=== PATIENT | male | born 1990 | race Caucasian/White ===

== ENCOUNTER 2018-09-09 20:14 | Inpatient (IN) | payer OTHER ==
--- NOTE | 2018-09-09 20:16 | EDPHY ---
HPI/HX/ROS/PE/MDM Narrative: CHIEF COMPLAINT: Abdominal pain HPI: This patient is a 28 year old male with history of ulcerative colitis s/p colostomy placement in April. He arrives today via EMS with concern for a possible clogged ostomy site. He has not noted any output in his colostomy bag for the past 8 hours. He endorses nausea ongoing for several hours with several episodes of vomiting beginning around 18:00 today. He endorses pain at 8/10 severity in his lower abdomen near the ostomy site. Prior to today, he has done well since the ostomy placement. He notes he is scheduled for surgery 10/05/18 to repair his bowel and remove the colostomy. He denies fever, chest pain, shortness of breath, or other associated symptoms. REVIEW OF SYSTEMS: A comprehensive 10 system review of systems is otherwise negative aside from elements mentioned in the history of present illness and medical decision making. PMH: Ulcerative colitis s/p colostomy placement. SOCIAL HISTORY: Student. Lives in [place]. Single. PHYSICAL EXAM: General:Patient is alert, in no acute distress. ENT:Eyes are normal to inspection. ENT inspection normal. Neck: Normal inspection. Full range of motion. Respiratory:No respiratory distress. Breath sounds normal bilaterally. Cardiovascular: Regular rate and rhythm. Strong peripheral pulses. Normal cap refill. Abdomen: Ostomy present. There are no peritoneal signs. There are normal bowel sounds. Back: Normal to inspection. No tenderness to palpation. Skin: Normal color. No rash. Warm and dry. Extremities: Normal appearance. Full range of motion. Neuro: Oriented x3. Normal motor function. Normal sensory function. ED Course: 20:15 met EMS on arrival. 28 y/o male with history of ulcerative colitis s/p colostomy presents with nausea, vomiting, and no ostomy output over the past 8 hours. Plan for x-ray of abdomen to r/o obstruction or other acute processes. Plan for labs including CBC, chemistries. 20:[address] Navarro, radiologist. Abdominal x-ray shows evidence of obstruction. Reviewed laboratory studies. Notable for elevated WBC of 17,800. 21:[address] Mcgill, general surgeon. He will consult. Plan for CT abdomen/pelvis as well as fluoroscopy study to further evaluate the obstruction. 21:15 Reassessed patient. Discussed plan for admission for treatment of SBO. The patient is amenable to this. 21:44 Dr. Mcgill at bedside. He accepts admission for perioperative management of SBO. - Data Points Imaging Results: Imaging Impressions Abdomen X-Ray 09/09/18 20:27 Impression: Small bowel distention extending to an ostomy in the right lower quadrant, which could be related to ileus or obstruction Findings discussed with Dontae Go MD 09/09/2018 at 20:45. Abdomen CT 09/09/18 21:11 Impression: 1. Small bowel distention suggesting obstruction/ileus with distention to the level of the stoma with no visible etiology. 2. Inflammation of the residual rectosigmoid colon, suggesting active colitis. 3. Small amount of free fluid with no visible free air. 4. Sacroiliitis. 5. Additional findings as above. Findings discussed with Dontae Go MD, on 09/09/2018 at 21:41. Laboratory Results: Laboratory Results 09/09/18 20:27 09/09/18 20:27 09/09/18 09/09/18 20:27 20:27 WBC 17.86 10^3/uL H 10^3/uL (3.80-9.50) RBC 5.24 10^6/uL 10^6/uL (4.40-6.38) Hgb 14.6 g/dL g/dL (13.7-17.5) Hct 43.9 % % (40.0-51.0) MCV 83.8 fL fL (81.5-99.8) MCH 27.9 pg pg (27.9-34.1) MCHC 33.3 g/dL g/dL (32.4-36.7) RDW 13.0 % % (11.5-15.2) Plt Count 439 10^3/uL H 10^3/uL (150-400) MPV 9.2 fL fL (8.7-11.7) Neut % (Auto) 90.6 % H % (39.3-74.2) Lymph % (Auto) 4.1 % L % (15.0-45.0) [place] % (Auto) 4.6 % % (4.5-13.0) Eos % (Auto) 0.1 % L % (0.6-7.6) Baso % (Auto) 0.3 % % (0.3-1.7) Nucleat RBC Rel Count 0.0 % % (0.0-0.2) Absolute Neuts (auto) 16.18 10^3/uL H 10^3/uL (1.70-6.50) Absolute Lymphs (auto) 0.73 10^3/uL L 10^3/uL (1.00-3.00) Absolute Monos (auto) 0.83 10^3/uL H 10^3/uL (0.30-0.80) Absolute Eos (auto) 0.01 10^3/uL L 10^3/uL (0.03-0.40) Absolute Basos (auto) 0.05 10^3/uL 10^3/uL (0.02-0.10) Absolute Nucleated RBC 0.00 10^3/uL 10^3/uL (0-0.01) Immature Gran % 0.3 % % (0.0-1.1) Immature Gran # 0.06 10^3/uL 10^3/uL (0.00-0.10) Sodium 137 mEq/L mEq/L (135-145) Potassium 3.9 mEq/L mEq/L (3.5-5.2) Chloride 99 mEq/L mEq/L (97-110) Carbon Dioxide 19 mEq/l L mEq/l (22-31) Anion Gap 19 mEq/L H mEq/L (6-14) BUN 15 mg/dL mg/dL (7-23) Creatinine 0.8 mg/dL mg/dL (0.7-1.3) Estimated GFR > 60 Glucose 124 mg/dL H mg/dL (70-100) Calcium 10.6 mg/dL H mg/dL (8.5-10.4) Medications Given: Discontinued Medications Hydromorphone HCl (Dilaudid) 1 mg IVP EDNOW ONE Stop: 09/09/18 20:41 Last Admin: 09/09/18 20:42 Dose: 1 mg Sodium Chloride (Ns) 1,000 mls @ 0 mls/hr IV EDNOW ONE; Wide Open PRN Reason: Protocol Stop: 09/09/18 20:27 Last Admin: 09/09/18 20:42 Dose: 1,000 mls Ondansetron HCl (Zofran) 4 mg IVP EDNOW ONE Stop: 09/09/18 20:41 Last Admin: 09/09/18 20:41 Dose: 4 mg General Time Seen by Provider: 09/09/18 20:15 Initial Vital Signs: Initial Vital Signs Temperature (C) 36.9 C 09/09/18 20:17 Heart Rate 98 09/09/18 20:17 Respiratory Rate 16 09/09/18 20:17 Blood Pressure 136/86 H 09/09/18 20:17 O2 Sat (%) 98 09/09/18 20:17 O2 Delivery Mode Nasal Cannula O2 (L/minute) 2 Allergies/Adverse Reactions: No Known Allergies Allergy (Unverified 09/09/18 20:17) Home Medications: Medication Instructions Recorded oxyCODONE HCL [Oxycodone HCl] 5 mg PO Q6H PRN 09/09/18 oxyCODONE/APAP 5/325 [Percocet 1 - 2 tab PO Q4 PRN #20 tab 09/12/18 5/325 (*)] Departure - Departure Disposition: [facility] Inpatient Acute Clinical Impression: Small bowel obstruction Condition: Good Report Scribed for: Dontae Go Report Scribed by: Lisa Palafox Date of Report: 09/09/18 Time of Report: 22:26 Physician Review and Approval Statement: Portions of this note were transcribed by an ED scribe. I personally performed the history, physical exam, and medical decision making; and confirm the accuracy of the information in the transcribed note.
[2018-09-09] MEDS ORDERED: NS 1,000 ML IV ONE (20:26)
[2018-09-09 20:36] LABS: PLATELET COUNT 439 10^3/uL (150-400)
[2018-09-09] MEDS ORDERED: HYDROmorphONE/DILAUDID 2 MG/ML INJ IVP ONE (20:40)
[2018-09-09] MEDS ORDERED: ONDANSETRON 4 MG/2 ML VIAL IVP ONE (20:40)
[2018-09-09] MEDS ORDERED: ONDANSETRON 4 MG/2 ML VIAL ONE (20:40)
[2018-09-09] MEDS ORDERED: HYDROmorphONE/DILAUDID 1 MG/ML INJ ONE (20:40)
[2018-09-09] MEDS ORDERED: IOPAMIDOL (ISOVUE-300) 100 ML BTL ONE (21:14)
[2018-09-09] MEDS ORDERED: OXYCODONE/APAP 5/325 TAB PO PRN (22:10)
[2018-09-09] MEDS ORDERED: HYDROmorphONE/DILAUDID 1 MG/ML INJ IVP ONE (22:13)
--- NOTE | 2018-09-09 22:49 | GHP ---
[f rep st] PREOP HISTORY AND PHYSICAL DATE OF ADMISSION: 09/09/2018 HISTORY OF PRESENT ILLNESS: A 28-year-old male who is seen in the ER with a bowel obstruction which appears to be at his ileal stoma. He has had a near-total colectomy for ulcerative colitis. He is w aiting to have a possible ileoanal anastomosis. He is admitted at this time for IV fluids, evaluatio n, and possible surgery if not improving. Risks and options have been fully discussed. PAST MEDICAL HISTORY: Includes no other major medical problems other than ulcerative colitis for whi ch he has had a total abdominal colectomy. He still has his rectum in place. REVIEW OF SYSTEMS: Negative on a full 10-point review of systems. MEDICATIONS: Pain pills. ALLERGIES: None. PHYSICAL EXAMINATION: GENERAL: Exam reveals an alert 28-year-old male in no acute distress. VITAL SIGNS: He is afebrile. HEAD AND NECK: Exam reveals no icterus, adenopathy, or oral lesions. NECK: Supple with full range of motion. CHEST: Clear and symmetric. CARDIAC: Regular rhythm. ABDOMEN : Soft, slightly distended. He has the right lower quadrant ileostomy which still appears to be pin k. He has mild tenderness in the left lower quadrant. There are no hernias. GENITALIA: Normal. E XTREMITIES: Reveal full range of motion with full pulses. NEUROLOGIC: Exam is physiologic and symm etric. PSYCH: Exam reveals him to be alert, oriented, and cooperative. IMPRESSION: Small bowel obstruction secondary to his ileostomy which could be twisted or strictured. PLAN: Admit for IV fluids and evaluation. We will proceed with a retrograde ileostomy dye study and possible surgery if indicated. /[id number]/MODL
[2018-09-09] MEDS: D5W 1/2 NS W/ 20 KCl/L 1,000 ML IV SCH (23:56)
[2018-09-10] MEDS: HYDROmorphONE/DILAUDID 1 MG/ML INJ IVP PRN ×4 (01:30→10:32)
[2018-09-10] MEDS: ONDANSETRON 4 MG/2 ML VIAL IVP PRN ×2 (01:30→10:36)
[2018-09-10 05:46] LABS: PLATELET COUNT 497 10^3/uL (150-400)
--- NOTE | 2018-09-10 08:41 | SOAPPROG ---
SOLJ Progress Note Assessment/Plan: Assessment: FEELS BETTER BUT STILL SOME CRAMPS TODAY/NG HAS RELIEVED A LOT OF PRESSURE ABDOMEN SOFT WITH MINIMAL TENDERNESS AND POSITIVE BOWEL SOUNDS/STOMA PINK AND NORMAL BUT MINIMAL OUTPUT [address] STILL SHOWS DILATED BOWEL BUT WITHOUT SIGNIFICANT AIR-FLUID LEVELS WITH DISTENSION RIGHT DOWN TO THE STOMA HEENT NONICTERIC CHEST CLEAR COR REGULAR RHYTHM AFEBRILE VITAL SIGNS STABLE Plan: WILL MOST LIKELY NEED STOMA REVISION THE ONLY EXPLANATION IS A TWIST AT THE FASCIAL LEVEL EVEN THOUGH I CAN'T PASS A FINGER COMPLETELY THROUGH AND THE STOMA IS QUITE NORMAL LOOKING/RISKS AND OPTIONS FULLY DISCUSSED AND HE IS AGREEABLE WITH SURGERY IF NECESSARY 09/10/18 08:36 Objective: Vital Signs Temp Pulse Resp BP Pulse Ox 36.7 C 69 16 132/83 H 98 09/10/18 07:14 09/10/18 07:14 09/10/18 07:14 09/10/18 07:14 09/10/18 07:14 Laboratory Results 09/10/18 04:45 09/10/18 04:45 09/09/18 09/10/18 09/11/18 05:59 05:59 05:59 Intake Total 935 Output Total 1475 350 Balance -540 -350 ICD10 Worksheet Patient Problems: Problems Problem Status Onset Small bowel obstruction Acute
[2018-09-10] MEDS: ERTAPENEM 1 GM in NS 100 ML IV SCH (09:10)
--- NOTE | 2018-09-10 09:33 | PDMN ---
Medical Necessity Medical necessity: Pt meets inpt criteria per MD order and MCG M-210, Intestinal Obstruction, 2 days. Inpt admission indicated for SBO secondary to ileostomy. IVF, NG tube placed, will likely need stoma revision. 28 y/o w/Hx near total colectomy for ulcerative colitis, anticipate>2MN for ongoing eval/ management of above.
--- NOTE | 2018-09-10 11:31 | ASMTCMCOM ---
CM Note CM Note Notes: CM reviewed pt's chart. Pt is a 28-year old male who came to the ER with a bowel obstruction which appears to be at his ileal stoma. CM attempted to met with pt twice but pt was asleep both times. No therapy's ordered at this time. CM to follow. Plan: TBD Date Signed: 09/10/2018 11:30 AM Electronically Signed By:Brittany Torres
[2018-09-10] MEDS ORDERED: HYDROmorphONE/DILAUDID 1 MG/ML INJ IVP PRN ×2 (12:00→15:05)
[2018-09-10] MEDS ORDERED: BUPIVACAINE 0.5% 30 ML SDV ONE (13:45)
[2018-09-10] MEDS ORDERED: HEPARIN 1000 UNIT/1 ML MDV ONE (13:45)
[2018-09-10] MEDS ORDERED: ceFAZolin 1 GM/5 ML SYR ONE (13:46)
[2018-09-10] MEDS ORDERED: fentaNYL 100 MCG/2 ML INJ ONE (14:04)
[2018-09-10] MEDS ORDERED: ONDANSETRON 4 MG/2 ML VIAL ONE ×2 (14:04→14:31)
[2018-09-10] MEDS ORDERED: HYDROmorphONE/DILAUDID 2 MG/ML INJ ONE (14:29)
[2018-09-10] MEDS ORDERED: PROPOFOL 200 MG/20 ML VIAL ONE (14:29)
[2018-09-10] MEDS ORDERED: ONDANSETRON 4 MG/2 ML VIAL IVP ONE (14:30)
[2018-09-10] MEDS ORDERED: fentaNYL 100 MCG/2 ML INJ IV ONE (14:30)
[2018-09-10] MEDS ORDERED: DEXAMETHASONE 4 MG/ML VIAL ONE (14:31)
[2018-09-10] MEDS ORDERED: ROCURONIUM 50 MG/5 ML VIAL ONE (14:31)
[2018-09-10] MEDS ORDERED: PHENYLEPHRINE HCL 100 MCG/ML SYR ONE (14:39)
[2018-09-10] MEDS ORDERED: NALOXONE HCL 0.4 MG/ML INJ IVP PRN (15:05)
[2018-09-10] MEDS ORDERED: ALBUTEROL 3 ML DEYVIAL IH PRN (15:05)
[2018-09-10] MEDS ORDERED: fentaNYL 100 MCG/2 ML INJ IVP PRN (15:05)
--- NOTE | 2018-09-10 15:07 | PDANEPAE ---
ANE History of Present Illness SBO ANE Past Medical History - Pulmonary History Hx Oxygen in Use at Home: No Hx Sleep Apnea: No Sleep Apnea Screening Result - Last Documented: Negative - Endocrine History Hx Diabetes: No - Chronic Pain History Chronic Pain: No ANE Review of Systems Review of Systems: ANE Patient History - Allergies Allergies/Adverse Reactions: No Known Allergies Allergy (Unverified 09/09/18 20:17) - Home Medications Home Medications: oxyCODONE HCL [Oxycodone HCl] 5 mg PO Q6H PRN 09/09/18 [Last Taken Unknown] - NPO status NPO Since - Liquids (Date): 09/10/18 NPO Since - Liquids (Time): 06:00 - Smoking Hx Smoking Status: Never smoked ANE Labs/Vital Signs - Labs Result Diagrams: 09/10/18 04:45 09/10/18 04:45 - Vital Signs Blood Pressure: 140/85 Heart Rate: 78 Respiratory Rate: 16 O2 Sat (%): 91 Height: 172.7 cm Weight: 65.7 kg ANE Physical Exam - Airway Neck exam: FROM Mallampati Score: Class 2 Mouth exam: normal dental/mouth exam - Pulmonary Pulmonary: clear to auscultation - Cardiovascular Cardiovascular: regular rate and rhythym - ASA Status ASA Status: I, E ANE Anesthesia Plan Anesthesia Plan: general endotracheal anesthesia
[2018-09-10] MEDS ORDERED: fentaNYL 100 MCG/2 ML INJ IVP ONE (15:15)
[2018-09-10] MEDS ORDERED: SUGAMMADEX SODIUM 200 MG/2 ML VIAL IVP ONE (16:00)
--- NOTE | 2018-09-10 16:11 | POSTOPPROG ---
Post Op Note Date of Operation: 09/10/18 Surgeon: Timmy Mcgill Anesthesiologist: manuelito Anesthesia: GET(General Endotracheal) Pre-op Diagnosis: sbo Post-op Diagnosis: same 2/2 volvulus around the ostomy Indication: pain Procedure: lap adhesiolysis and detorsion of ileostomy with enteropexy Findings: 360 volvulus at stoma site Inf/Abcess present in the surg proc area at time of surgery?: Yes Depth: Organ Space EBL: Minimal Complications: 0
[2018-09-10] MEDS: KETOROLAC 15 MG/1 ML SDV IVP SCH (18:07)
[2018-09-10] MEDS: D5W 1/2 NS W/ 20 KCl/L 1,000 ML IV SCH (23:12)
[2018-09-11] MEDS: KETOROLAC 15 MG/1 ML SDV IVP SCH ×4 (00:04→17:40)
[2018-09-11] MEDS: D5W 1/2 NS W/ 20 KCl/L 1,000 ML IV SCH ×2 (07:19→21:18)
[2018-09-11] MEDS: ERTAPENEM 1 GM in NS 100 ML IV SCH (08:28)
[2018-09-11] MEDS ORDERED: LR 1,000 ML IV ONE (12:30)
--- NOTE | 2018-09-11 13:35 | SOAPPROG ---
SOAP Progress Note Assessment/Plan: Assessment: FEELS BETTER BUT STILL SOME CRAMPS TODAY/NG HAS RELIEVED A LOT OF PRESSURE ABDOMEN SOFT WITH MINIMAL TENDERNESS AND POSITIVE BOWEL SOUNDS/STOMA PINK AND NORMAL BUT MINIMAL OUTPUT [address] STILL SHOWS DILATED BOWEL BUT WITHOUT SIGNIFICANT AIR-FLUID LEVELS WITH DISTENSION RIGHT DOWN TO THE STOMA HEENT NONICTERIC CHEST CLEAR COR REGULAR RHYTHM AFEBRILE VITAL SIGNS STABLE Plan: WILL MOST LIKELY NEED STOMA REVISION THE ONLY EXPLANATION IS A TWIST AT THE FASCIAL LEVEL EVEN THOUGH I CAN'T PASS A FINGER COMPLETELY THROUGH AND THE STOMA IS QUITE NORMAL LOOKING/RISKS AND OPTIONS FULLY DISCUSSED AND HE IS AGREEABLE WITH SURGERY IF NECESSARY 09/10/18 08:36 09/11/18 13:34 MILDLY DISTENDED BUT ACTIVE BS AND LOTS OF FLATUS AND EFFLUENT FROM PINK OSTOMY PLAN DC NG, ADVANCE DIET/ WATCH FOR RECURRENT VOLVULUS Objective: Vital Signs Temp Pulse Resp BP Pulse Ox 37.1 C 106 H 16 131/83 H 100 09/11/18 11:35 09/11/18 11:35 09/11/18 11:35 09/11/18 11:35 09/11/18 11:35 09/10/18 09/11/18 09/12/18 05:59 05:59 05:59 Intake Total 3343 Output Total 7810 1924 Vebpnnp -301 -7939 ICD10 Worksheet Patient Problems: Problems Problem Status Onset Small bowel obstruction Acute
[2018-09-12] MEDS: KETOROLAC 15 MG/1 ML SDV IVP SCH ×3 (00:18→12:42)
[2018-09-12 05:09] LABS: PLATELET COUNT 385 10^3/uL (150-400)
[2018-09-12] MEDS: D5W 1/2 NS W/ 20 KCl/L 1,000 ML IV SCH (05:16)
[2018-09-12] MEDS ORDERED: LR 500 ML IV ONE ×2 (08:00)
[2018-09-12] MEDS ORDERED: LR 1,000 ML IV ONE (08:30)
--- NOTE | 2018-09-12 09:22 | SOAPPROG ---
SOAP Progress Note Assessment/Plan: Assessment/plan: 28 y/o M with a hx of UC and ileostomy admitted for SBO S/p lap adhesiolysis and detorsion of ileostomy with enteropexy POD #2 Decreased uop. 500cc bolus this am. Dispo: Likely home later today pending increase in urine output. S: Doing well overall. Tolerating a regular diet and having ostomy output. Pain controlled with toradol and minimal percocet. O: Alert Afebrile RRR No increased wob Abdomen: soft, nontender, incision cites are cdi, ostomy is pink with adequate profile. Mildly edematous. Liquid stool in appliance. 09/12/18 09:16 Objective: Vital Signs Temp Pulse Resp BP Pulse Ox 36.4 C 76 18 121/68 H 96 09/12/18 07:19 09/12/18 07:19 09/12/18 07:19 09/12/18 07:19 09/12/18 07:19 Laboratory Results 09/12/18 04:42 09/12/18 04:42 09/11/18 09/12/18 09/13/18 05:59 05:59 05:59 Intake Total 3343 3632 Output Total 8653 3442 Balance -637 -394 ICD10 Worksheet Patient Problems: Problems Problem Status Onset Small bowel obstruction Acute
[2018-09-12] MEDS: ERTAPENEM 1 GM in NS 100 ML IV SCH (10:18)
[2018-09-12 11:39] VITALS: BP 122/72
--- NOTE | 2018-09-12 23:13 | GOP ---
[f rep st] OPERATIVE REPORT DATE OF OPERATION: 09/10/2018 SURGEON: Timmy Mcgill MD SPECIAL EDUCATION CURRICULUM SPECIALIST: No senior care assistant. ANESTHESIOLOGIST: Dr. Pierce. PREOPERATIVE DIAGNOSIS: Small bowel obstruction. POSTOPERATIVE DIAGNOSIS: Small bowel obstruction with small bowel volvulus. FINDINGS: The patient was found to have a small bowel volvulus at the fascial level around his ileostomy. The bowel appeared to be quite viable and the ostomy was quite patent after correction of the problem. PROCEDURE: LAPAROSCOPIC ADHESIOLYSIS AND DE TORSION OF A SLOW SMALL-BOWEL VOLVULUS WITH ENTEROPEXY DESCRIPTION OF PROCEDURE: The patient was taken to the operating room where he had a satisfactory general endotracheal anesthesia by Dr. Pierce. He was placed in the supine position and prepped and draped in usual sterile fashion. Epigastric incision was made. A Veress needle inserted. Pneumoperitoneum was established. Trocar was then introduced. Adequate visibility was obtained. The laparoscope introduced. Two other trocars were placed in the upper abdomen under direct vision. The adhesions were then taken down laparoscopically with the Harmonic Scalpel and/or the monopolar cautery. It appeared to be a complete 360 degree twist around the ostomy site at the fascial level. The bowel itself was quite viable. After lysing a few simple adhesions, it was easy enough to detorse the bowel. The ostomy itself was sort of straight up vertical ostomy without connection to the lateral abdominal wall. The mesentery itself was quite thickened and fibrous. Some of the scar tissue was divided with the Harmonic Scalpel with care to avoid injury to the bowel itself into the stoma. The bowel was then tacked up laterally to the anterior abdominal wall with interrupted 3-0 PDS sutures to try to prevent recurrent volvulus at that point. He, however, is still susceptible to volvulus further down the small bowel loops, which are completely free in the abdomen and able to twist and migrated around his ostomy. The ostomy was probed and was quite patulous. After completing the pexy, trocars were removed under direct vision and pneumoperitoneum was released. Trocar sites were closed with 4-0 Monocryl, subcuticular stitch for the skin. All layers infiltrated with 0.5% Marcaine. He tolerated the procedure quite well, taken to the recovery room in good condition. There were no complications. /[id number]/MODL MTDD
--- NOTE | 2018-09-14 10:12 | GDS ---
[f rep st] DISCHARGE SUMMARY DISCHARGE DIAGNOSIS: Small bowel obstruction. SPECIAL TESTS: Abdominal x-rays x3, abdominal CT, retrograde ileostomy dye study. For full details, please see reports. PROCEDURES: Laparoscopic adhesiolysis and detorsion of a small bowel volvulus with enteropexy. INTRAOPERATIVE FINDINGS: The patient was found to have a small bowel volvulus at the fascia level around his ileostomy. The bowel appeared to be quite viable , and the ostomy was quite patent after correction of the problem. HOSPITAL COURSE: This is a 28-year-old male with a history of ulcerative colitis, status post colectomy and ileostomy previously. He presented to the emergency department complaining of abdominal pain. He was found to have a bowel obstruction at the level of his ileal stoma. The patient was admitted for IV fluids and possible surgery. The patient failed to improve with conservative measures and was subsequently taken to the operating room by Dr. Mcgill for laparoscopic adhesiolysis and detorsion of a small bowel volvulus with enteropexy. The patient tolerated the procedure well, and there were no complications. He was given a regular diet on postoperative day #0, which he tolerated well. He began to have significant output from his ostomy. His pain was initially controlled on IV pain medications and subsequently transitioned to oral pain medications. The day following surgery, the patient's urine output was decreased. He was given a 500 cc bolus of normal saline. Several hours later, the patient urinated approximately 600 cc. At this time, his pain was well controlled and he had output into his ostomy appliance. He was eventually discharged home later that day in good condition. He was advised to avoid heavy lifting and start on his abdominal exercises. He was given a prescription for Percocet for pain. He was advised to follow up in our office in 2 weeks and to call with fever, chills, or worsening symptoms. /[id number]/MODL MTDD
== END 2018-09-12 14:07 | disposition home or self-care (01) | DRG 337 ==
LOC: F1N 23:31 → OBSVTOIN 09-10 09:24
PROVIDERS: ADMIT Surgery; ATTEND Surgery
PROC: 0DN84ZZ Release Small Intestine, Percutaneous Endoscopic Approach (ICD-10-PCS; principal; 2018-09-10 15:00)
DX: K56.690 Other partial intestinal obstruction (principal); K56.2 Volvulus; E86.9 Volume depletion, unspecified; Z93.2 Ileostomy status
CPT/HCPCS: 96374; J1100; J1170; J1335; J1885; J2370; J2405; J2704; J3010; Q9967